=== PATIENT | male | born 2000 | race Hispanic/Latino ===

== ENCOUNTER 2023-09-20 03:20 | Emergency (ER) | payer SELFPAY ==
[2023-09-20 03:25] VITALS: BP 146/96
[2023-09-20 03:28] LABS: Glucose - Point of Care 267 mg/dl (70-99)
--- NOTE | 2023-09-20 05:32 | CHAP ---
Called to provide emotional and spiritual support for Gómez's family (cousin, uncle, brother) at bedside. Prayers shared, prayer blanket given, memories shared.
--- NOTE | 2023-09-20 07:47 | ED.GENMED ---
History of Present Illness
General
Chief Complaint: CODE
Source: family and ambulance crew
Exam Limitations: clinical condition
Time Seen by Provider: 09/20/23 03:25
Nursing documentation reviewed up to this point in time: agreed with
Travel History
Have you had any contact with someone who has COVID-19?: No
Do you have any symptoms of coronavirus? Fever > 100 degrees, chills, cough, shortness of breath, sore throat, loss of taste or smell, muscle aches, or headache?: No
History of Present Illness
History of Present Illness:
This is a 22-year-old male, immigrant from [facility] with no reported past medical history. He resides with his brother, uncle and a family friend.
Family states patient believes he has history of hypotension however no formal diagnosis of this and no PCP nor routine medical care.
Over the past week he has not been feeling well, was voicing to his family that he thought that he was 'hypotensive'
Tonight the family heard a thud upstairs in his bedroom and then approximately 15 minutes later, when they checked on the patient they found him lying on the floor next to his bed, unresponsive, cyanotic with no spontaneous respirations. It was at
this time they called 911 and upon police arrival patient was found to be in cardiac arrest, CPR initiated and AED applied which delivered at least 2 shocks prior to EMS arrival.
Upon EMS arrival, ACLS protocols initiated and initial rhythm reportedly supraventricular tachycardia without a pulse/PEA.
This tachycardic rhythm degraded to V-fib and V-fib persisted throughout out of hospital resuscitation despite continued CPR, multiple rounds of IV epinephrine, multiple shocks and 2 IV doses of amiodarone.
Family reports no history of drug use and only rare alcohol use but did not believe he had been drinking any alcohol at least over the past week.
Police reportedly gave 2 mg of Narcan upon their initial arrival.
Patient was orally intubated in the field.
Left tibial IO placed prehospital.
Sales Service Professional reports no evidence of trauma, airway was clear.
Patient reportedly takes no medicines on a daily basis.
According to family patient has resided in this area for at least the past 8 to 9 years.
No previous ED visits, nor apparent free clinic visits.
According to EMS, thus far prehospital resuscitation efforts have been ongoing for approximately 40 minutes.
Past History
Past History
ED Past Medical History: None
ED Past Surgical History: None
Social History
Alcohol: Occasional
Drug: None
Personal: Single
Living: with family
Family History
Family History: Unable to obtain
Phy Exam
Physical Exam
Physical Exam:
CODE EXAM:
VITAL SIGNS: No palpable blood pressure, no pulses, no respiration.
GENERAL EXAM: Mottled 22-year-old male appears his stated age. The head is normocephalic, atraumatic.
EYES: Pupils fixed
ENT: Patient orally intubated
NECK: No venous distention
RESPIRATORY: Initially absent breath sounds on the left. ET tube withdrawn 2 cm�thereafter equal breath sounds bilaterally.
CARDIAC: Absent heart sounds
VASCULAR: Absent pulses. Femoral pulses palpable with CPR. Absent pulses when CPR is briefly discontinued.
ABDOMEN: Soft no masses
GUAIAC: Not done
MUSCULOSKELETAL: Unable to evaluate strength. IO needle left anterior tibia. IV fluids infusing.
EXTREMITIES: No edema or contractures
SKIN: No rash
PSYCH: Mood, affect unable to evaluate
Course
Orders/Labs/Results
Orders:
Orders
09/20/23 03:21
EPINEPHrine [Adrenalin 1 mg/10 ml] 6 mg .ROUTE .STK-MED ONE
Lidocaine Bolus 100 mg [Xylocaine Bolus 100 mg] 100 mg .ROUTE .STK-MED ONE
09/20/23 03:37
EPINEPHrine [Adrenalin 1 mg/10 ml] 1 mg .ROUTE .STK-MED ONE
Abnormal Lab Results
09/20/23
03:27
POC Glucose 267 H mg/dl
(70-99)
Vital Signs
Initial and Last Documented VS:
Initial Vital Signs
Pulse Resp BP Pulse Ox
0 18 146/96 0
09/20/23 03:25 09/20/23 03:25 09/20/23 03:25 09/20/23 03:25
Last Documented Vital Signs
Pulse Resp BP Pulse Ox
0 18 146/96 0
09/20/23 03:25 09/20/23 03:25 09/20/23 03:25 09/20/23 03:25
MDM/Problems Addressed
Differential Diagnosis Includes:
22-year-old presents in cardio pulmonary arrest.
At least 40 minutes of prehospital resuscitation efforts.
Initial cardiac rhythm upon arrival fine V-fib quickly degraded to asystole.
CPR continued throughout resuscitation.
No improvement after an IV dose of lidocaine, additional IV dose of epinephrine.
Bedside Accu-Chek 267.
Bedside cardiac ultrasound performed by myself shows no cardiac activity.
Due to prolonged unsuccessful resuscitation efforts, no cardiac activity on bedside ultrasound, resuscitation efforts discontinued and patient pronounced .
09/20/2023 04:20 AM
Harshad Corona notified.
Patient is a sales enablement manager's case and the sales enablement manager will tack picker the body later this morning.
Family, brother, uncle and family friend are at bedside.
*Pulse Oximetry
Patient hypoxic: yes
*Flight Test Supervisor Interpretation
Rate: other (Fine V-fib degraded to asystole)
Interpretation: abnormal
*Critical Care Note
Total Time (30-74mins, 75-104mins- exclusive of procedures): Not Applicable
ED Attending Note
-
Portions of this chart may have been created with voice recognition software.� Occasional wrong word or��sound alike� substitutions may have occurred due to the inherent limitations of voice recognition software.
Discharge Plan
Departure
Patient Disposition:
Discharge Problem:
Sudden cardiac
Referrals:
UNKNOWN - PT DOES,NOT KNOW [Family Provider] -
Interventions
Interventions:
*Risk Screen - Suicide Last Done: 09/20/23 03:25
*General Assessment Last Done: 09/20/23 03:25
*Neglect/Abuse Screening Last Done: 09/20/23 03:25
*ED COVID-19 Vaccine History Last Done: 09/20/23 03:25
*Nursing Disposition Last Done: 09/20/23 06:16
Discharge Date and Time
Discharge Date/Time: 09/20/23 06:20
== END 2023-09-20 06:20 | disposition expired ==
LOC: EMR 03:20
PROVIDERS: EMERGENCY PHYSICIAN Emergency Medicine
DX: I46.9 Cardiac arrest, cause unspecified (principal)
CPT/HCPCS: 99283; 82962